=== PATIENT | male | born 1975 | race Caucasian/White ===

== ENCOUNTER 2016-03-29 15:46 | Emergency (ER) | payer BC, OTHER ==
[~2016-03-29] VITALS: Ht 182.9 cm; Wt 136.4 kg
[~2016-03-29 15:46] MED LIST: ADVIL200 MG PO; CEPHALEXIN500 M1 PO; CHLORASEPTIC MM; COLACE 100100 MG/CAP PO; CORTISPORIN EAR10 M1 OT; CORTISPORIN OTI10 ML OT; ERYTHROMYCIN OPTHALM OP; EXCEDRIN MIGRAI1 TAB PO; LORTAB 5/500 501 TAB PO; NO HOME MEDICATIONS; NORCO 325 MG-51 TAB PO; PERCOCET 5/321 UDTAB PO; PREDNISONE20 MG PO; TYLENOL 500MG500 MG PO; ZITHROMAX Z PA250 MG PO; ZOFRAN 4MG T4 MG/TAB PO; ZOFRAN ODT4 MG PO; ZYRTEC 10MG10 MG PO
[2016-03-29 15:47] VITALS: BP 151/91; PULSE 109; TEMP 99.6
[2016-03-29] MEDS ORDERED: PHENERGAN W/CO120 M1 PO (15:51)
[2016-03-29] MEDS ORDERED: TESSALON P100 MG/CAP PO (15:51)
[2016-03-29] MEDS ORDERED: PROAIR HFA0.09 MG/AC IH ×2 (15:51→16:41)
[2016-03-29] MEDS ORDERED: RT ADVAIR 128 DISKUS IH (16:03)
== END 2016-03-29 16:55 | disposition home or self-care (01) ==
LOC: COL.ER 15:46
DX: J20.9 Acute bronchitis, unspecified (principal)

== ENCOUNTER 2016-04-03 12:37 | Emergency (ER) | payer BC, OTHER ==
[~2016-04-03] VITALS: Ht 182.9 cm; Wt 136.4 kg
[~2016-04-03 12:37] MED LIST changes: +PHENERGAN W/CO120 M1 PO; +PROAIR HFA0.09 MG/AC IH; +RT ADVAIR 128 DISKUS IH; +TESSALON P100 MG/CAP PO
[2016-04-03 13:36] LABS: INFLUENZA B NEGATIVE
[2016-04-03 14:20] LABS: BASO % 0.3 % (0.0-2.0); EOS # 0.2 (0.0-0.7); EOS % 2.4 % (0-4.0); GRAN # 6.6 (1.4-6.5); GRAN % 66.8 % (42.2-75.2); HEMATOCRIT 44.1 % (42.0-52.0); HEMOGLOBIN 15.2 g/dl (13.5-18.0); LYMPH # 2.3 (1.2-3.4); LYMPH % 22.9 % (20.0-51.0); MEAN CELL VOLUME 85 fl (80.0-100.0); MEAN CORPUSCULAR HEMOGLOBIN 29 pg (27.0-31.0); MEAN CORPUSCULAR HGB CONC 35 g/dl (33.0-37.0); MEAN PLATELET VOLUME 9.3 fl (7.4-10.4); MONO # 0.7 (0.1-0.6); MONO % 7.1 % (1.7-9.3); PLATELET COUNT 282 K/mm3 (130-400); RED BLOOD COUNT 5.19 M/mm3 (4.20-5.60); REDCELL DISTRIBUTION WIDTH-CV 12.7 % (11.5-14.5); WHITE BLOOD COUNT 9.9 K/mm3 (4.8-10.8)
[2016-04-03 14:36] LABS: ADJUSTED CALCIUM 9.4 mg/dL (8.4-10.2); ALBUMIN 3.8 gm/dL (3.5-5.0); CALCIUM 9.2 mg/dL (8.4-10.2); CREATININE, serum 1.09 mg/dL (0.66-1.25); POTASSIUM 4.2 mmol/L (3.4-5.0); TOTAL PROTEIN 7.1 gm/dL (6.4-8.2)
[2016-04-03 14:38] LABS: PH 5 (5-8); SQUAMOUS EPITHELIAL None Seen /hpf; URINE APPEARANCE Clear; URINE BACTERIA None Seen /hpf; URINE BILIRUBIN Negative (NEGATIVE); URINE BLOOD Negative (NEGATIVE); URINE COLOR Yellow; URINE GLUCOSE Negative (NEGATIVE); URINE KETONE Negative (NEGATIVE); URINE RBC 0-2 /hpf; URINE UROBILINOGEN Negative (NEGATIVE); URINE WBC 0-2 /hpf
[2016-04-03] MEDS ORDERED: NORCO 325 MG-51 TAB PO (15:19)
[2016-04-03] MEDS ORDERED: LEVAQUIN 750MG750 M1 PO (15:19)
[2016-04-03 16:09] VITALS: BP 120/75; PULSE 83; TEMP 98.8
== END 2016-04-03 16:08 | disposition home or self-care (01) ==
LOC: COL.ER 12:37
PROVIDERS: Nurse Practitioner
DX: J18.9 Pneumonia, unspecified organism (principal); F17.210 Nicotine dependence, cigarettes, uncomplicated
CPT/HCPCS: J1885; J2405; J3010; Q9967

== ENCOUNTER 2016-10-01 08:02 | Emergency (ER) | payer BC ==
[~2016-10-01] VITALS: Ht 180.3 cm; Wt 136.4 kg
[~2016-10-01 08:02] MED LIST changes: +LEVAQUIN 750MG750 M1 PO
[2016-10-01 08:04] VITALS: PULSE 101; TEMP 98.2
[2016-10-01] MEDS ORDERED: ZANTAC 150150 MG (08:07)
[2016-10-01 09:02] VITALS: BP 138/98
== END 2016-10-01 09:02 | disposition home or self-care (01) ==
LOC: COL.ER 08:02
DX: J06.9 Acute upper respiratory infection, unspecified (principal); K21.9 Gastro-esophageal reflux disease without esophagitis; F12.99 Cannabis use, unspecified with unspecified cannabis-induced disorder; Z87.891 Personal history of nicotine dependence

== ENCOUNTER 2017-02-17 21:28 | Emergency (ER) | payer BC ==
[~2017-02-17] VITALS: Ht 180.3 cm; Wt 150.8 kg
[~2017-02-17 21:28] MED LIST changes: +ZANTAC 150150 MG PO
[2017-02-17 21:30] VITALS: TEMP 98.9
[2017-02-17] MEDS ORDERED: LEXAPRO20 MG PO (21:34)
[2017-02-17 22:25] LABS: BASO % 0.3 % (0.0-2.0); EOS # 0.1 (0.0-0.7); GRAN # 10.2 (1.4-6.5); GRAN % 75.7 % (42.2-75.2); HEMATOCRIT 42.4 % (42.0-52.0); HEMOGLOBIN 14.4 g/dl (13.5-18.0); LYMPH % 14.8 % (20.0-51.0); MEAN CELL VOLUME 87 fl (80.0-100.0); MEAN CORPUSCULAR HEMOGLOBIN 29 pg (27.0-31.0); MEAN CORPUSCULAR HGB CONC 34 g/dl (33.0-37.0); MEAN PLATELET VOLUME 9.6 fl (7.4-10.4); MONO # 1.1 (0.1-0.6); MONO % 7.9 % (1.7-9.3); PLATELET COUNT 245 K/mm3 (130-400); WHITE BLOOD COUNT 13.5 K/mm3 (4.8-10.8)
[2017-02-17 22:37] LABS: ADJUSTED CALCIUM 9.3 mg/dL (8.4-10.2); ALBUMIN 4.3 gm/dL (3.5-5.0); BILIRUBIN,TOTAL 1.9 mg/dL (0.0-1.0); C-REACTIVE PROTEIN 6.1 mg/dL (0.0-0.9); CALCIUM 9.5 mg/dL (8.4-10.2); CREATININE, serum 1.41 mg/dL (0.66-1.25); POTASSIUM 3.9 mmol/L (3.4-5.0); TOTAL PROTEIN 7.3 gm/dL (6.4-8.2)
[2017-02-17 23:14] LABS: COLLECTION METHOD CLEAN CATCH
[2017-02-17 23:19] LABS: MUCOUS Present /lpf; PH 5 (5-8); SQUAMOUS EPITHELIAL None Seen /hpf; URINE APPEARANCE Clear; URINE BACTERIA None Seen /hpf; URINE BILIRUBIN Negative (NEGATIVE); URINE BLOOD Negative (NEGATIVE); URINE COLOR Yellow; URINE GLUCOSE Negative (NEGATIVE); URINE KETONE Negative (NEGATIVE); URINE LEUKOCYTE ESTERASE Negative (NEGATIVE); URINE PROTEIN(semi-quant) Negative (NEGATIVE); URINE RBC 0-2 /hpf; URINE UROBILINOGEN >=4.0 mg/dL (NEGATIVE); URINE WBC 0-2 /hpf
[2017-02-17] MEDS ORDERED: FLAGYL500 MG PO (23:23)
[2017-02-17] MEDS ORDERED: LEVAQUIN 750MG750 M1 PO (23:23)
[2017-02-17] MEDS ORDERED: NORCO 325 MG-51 TAB PO (23:24)
[2017-02-17] MEDS ORDERED: ZOFRAN 4MG T4 MG/TAB PO (23:24)
[2017-02-18 00:11] VITALS: BP 127/77; PULSE 107
== END 2017-02-18 00:32 | disposition home or self-care (01) ==
LOC: COL.ER 21:28
PROVIDERS: Emergency Medicine
DX: K57.92 Diverticulitis of intestine, part unspecified, without perforation or abscess without bleeding (principal); K21.9 Gastro-esophageal reflux disease without esophagitis; E66.9 Obesity, unspecified; Z68.42 Body mass index [BMI] 45.0-49.9, adult; Z90.49 Acquired absence of other specified parts of digestive tract; Z87.891 Personal history of nicotine dependence
CPT/HCPCS: J2405; J3010; J7030; Q9967

== ENCOUNTER 2018-12-05 22:13 | Emergency (ER) | payer SELFPAY ==
[~2018-12-05] VITALS: Ht 182.9 cm; Wt 136.4 kg
[~2018-12-05 22:13] MED LIST changes: +FLAGYL500 MG PO; +LEXAPRO20 MG PO
[2018-12-05 22:29] VITALS: TEMP 98.4
[2018-12-06] MEDS ORDERED: PREDNISONE20 MG PO (03:34)
[2018-12-06] MEDS ORDERED: ZITHROMAX 250M250 MG PO (03:34)
[2018-12-06] MEDS ORDERED: PROAIR HFA0.09 MG/AC IH (04:46)
[2018-12-06 04:56] VITALS: BP 123/71; PULSE 87
== END 2018-12-06 04:57 | disposition home or self-care (01) ==
LOC: COL.ER 22:13
DX: J45.909 Unspecified asthma, uncomplicated (principal); J06.9 Acute upper respiratory infection, unspecified; K21.9 Gastro-esophageal reflux disease without esophagitis; F32.9 Major depressive disorder, single episode, unspecified; F17.210 Nicotine dependence, cigarettes, uncomplicated; F90.9 Attention-deficit hyperactivity disorder, unspecified type; Z90.89 Acquired absence of other organs
CPT/HCPCS: J3475; J7512

== ENCOUNTER 2019-03-17 02:47 | Emergency (ER) | payer SELFPAY ==
[~2019-03-17] VITALS: Ht 182.9 cm; Wt 151.4 kg
[~2019-03-17 02:47] MED LIST changes: +ZITHROMAX 250M250 MG PO
[2019-03-17] MEDS ORDERED: SEPTRA DS 8001 TAB PO (03:29)
[2019-03-17 03:52] VITALS: BP 123/76; PULSE 100; TEMP 98.6
== END 2019-03-17 03:53 | disposition home or self-care (01) ==
LOC: COL.ER 02:47
DX: K61.1 Rectal abscess (principal); F32.9 Major depressive disorder, single episode, unspecified; K21.9 Gastro-esophageal reflux disease without esophagitis; F17.210 Nicotine dependence, cigarettes, uncomplicated

== ENCOUNTER 2019-04-24 18:55 | Emergency (ER) | payer SELFPAY ==
[~2019-04-24] VITALS: Ht 182.9 cm; Wt 136.4 kg
[~2019-04-24 18:55] MED LIST changes: +SEPTRA DS 8001 TAB PO
[2019-04-24 19:12] VITALS: BP 123/82; TEMP 97.8
[2019-04-24 20:52] VITALS: PULSE 89
== END 2019-04-24 20:54 | disposition home or self-care (01) ==
LOC: COL.ER 18:55
DX: S61.011A Laceration without foreign body of right thumb without damage to nail, initial encounter (principal); F90.9 Attention-deficit hyperactivity disorder, unspecified type; F17.210 Nicotine dependence, cigarettes, uncomplicated; W26.0XXA Contact with knife, initial encounter; Y92.009 Unspecified place in unspecified non-institutional (private) residence as the place of occurrence of the external cause

== ENCOUNTER 2021-03-28 06:33 | Emergency (ER) | payer SELFPAY ==
[~2021-03-28] VITALS: Ht 180.3 cm; Wt 140.9 kg
[2021-03-28 06:41] VITALS: PULSE 93; TEMP 98.1
[2021-03-28] MEDS ORDERED: FLEXERIL 1010 MG/TAB PO (06:44)
[2021-03-28] MEDS ORDERED: ROBAXIN 50500 MG/TAB PO (06:44)
[2021-03-28] MEDS ORDERED: ASPERCREME1 EACH TP (07:19)
[2021-03-28 07:22] VITALS: BP 149/98
== END 2021-03-28 07:23 | disposition home or self-care (01) ==
LOC: COL.ER 06:33
DX: M54.6 Pain in thoracic spine (principal); M54.2 Cervicalgia; X50.1XXA Overexertion from prolonged static or awkward postures, initial encounter; Y99.0 Civilian activity done for income or pay